=== PATIENT | female | born 1955 | race Caucasian/White ===

== ENCOUNTER 2016-11-22 16:45 | Observation (INO) | payer OTHER ==
[~2016-11-22] VITALS: Ht 175.3 cm; Wt 145.0 kg
[~2016-11-22 16:45] MED LIST: BUPROPION HCL75 MG PO; CHILDRENS CHEWA81 MG PO; CLARITIN10 MG PO; FLONASE 0.05% N16 GM; GABAPENTIN300 MG PO; HYDROCODON-ACE1 EAC2 PO; JANUMET 50-5001 EACH PO; LEVAQUIN500 MG PO; LEVOTHYROXINE25 MCG PO; OMEPRAZOLE40 MG PO; PRAVACHOL20 MG PO; SINGULAIR10 MG PO; VENTOLIN HFA8 GM INH; ZESTORETIC 20-1 EACH PO
[2016-11-22 17:17] LABS: BASO % 0.2 % (0.1-1.2); EOS # 0.2 10_X3_uL (0.0-0.4); EOS % 1.8 % (0.7-5.8); GRAN # 5.4 10_X3_uL (1.6-6.1); GRAN % 61.8 % (34.0-71.1); HEMATOCRIT 43.1 % (34-45); HEMOGLOBIN 14.1 g/dL (11.2-15.7); LYMPH # 2.5 10_X3_uL (1.2-3.7); LYMPH % 28.7 % (19.3-51.7); MEAN CORPUSCULAR HEMOGLOBIN 29.4 pg (27.0-33.0); MEAN CORPUSCULAR HGB CONC 32.7 g/dL (32.0-36.0); MEAN CORPUSCULAR VOLUME 89.8 fL (79-95); MEAN PLATELET VOLUME 10.3 fl (7.5-11.5); MONO # 0.7 10_X3_uL (0.2-0.9); MONO % 7.5 % (4.7-12.5); PLATELET COUNT 280 x10_3/uL (182-369); RED CELL DISTRIBUTION WIDTH 14.3 % (11.7-14.4); WHITE BLOOD COUNT 8.7 x10_3/uL (4.0-10.0)
[2016-11-22 17:41] LABS: ALBUMIN 3.9 gm/dL (3.4-5.0); BILIRUBIN,TOTAL 0.19 mg/dL (0.0-1.0); CALCIUM 9.3 mg/dL (8.7-10.7); CREATININE 1.2 mg/dL (0.6-1.3); POTASSIUM 4.5 mmol/L (3.5-5.1); TOTAL PROTEIN 6.9 gm/dL (6.4-8.2)
[2016-11-23 00:11] LABS: PARTIAL THROMBOPLASTIN TIME 22.9 SECONDS (21.3-29.3); PROTHROMBIN TIME (PATIENT) 10.5 SECONDS (9.9-11.1)
[2016-11-23 05:49] LABS: CKMB 1.6 ng/ml (0.0-5.0); TROP-I < 0.30 NG/ML (0.00-0.30)
[2016-11-23 12:01] LABS: CKMB 1.8 ng/ml (0.0-5.0)
[2016-11-23 12:05] LABS: TROP-I < 0.30 NG/ML (0.00-0.30)
[2016-11-23 18:24] LABS: URINE BILIRUBIN NEGATIVE (NEGATIVE); URINE BLOOD NEGATIVE (NEGATIVE); URINE GLUCOSE (UA) NORMAL (NORMAL); URINE KETONE NEGATIVE (NEGATIVE); URINE LEUKOCYTE ESTERASE TRACE (NEGATIVE); URINE NITRATE NEGATIVE (NEGATIVE); URINE PROTEIN NEGATIVE (NEGATIVE); UROBILINOGEN NORMAL mg/dL (<1.0)
[2016-11-23 18:42] LABS: URINE RBC RARE /[HPF] (0-2)
[2016-11-23 18:43] LABS: URINE BACTERIA TRACE (NONE SEEN); URINE MUCUS 1+; URINE SQUAMOUS EPITHELIAL CELL 0-10 /[HPF] (NONE SEEN); URINE WBC 0-5 /[HPF] (0-5)
[2016-11-24 07:42] LABS: HEMATOCRIT 43.9 % (34-45); HEMOGLOBIN 13.7 g/dL (11.2-15.7); MEAN CORPUSCULAR HEMOGLOBIN 28.5 pg (27.0-33.0); MEAN CORPUSCULAR HGB CONC 31.2 g/dL (32.0-36.0); MEAN CORPUSCULAR VOLUME 91.5 fL (79-95); MEAN PLATELET VOLUME 10.5 fl (7.5-11.5); RED BLOOD COUNT 4.8 x10_6/uL (3.9-5.2); RED CELL DISTRIBUTION WIDTH 14.5 % (11.7-14.4); WHITE BLOOD COUNT 5.9 x10_3/uL (4.0-10.0)
[2016-11-24 07:49] LABS: CALCIUM 8.7 mg/dL (8.7-10.7); CREATININE 1.2 mg/dL (0.6-1.3); POTASSIUM 4.4 mmol/L (3.5-5.1)
== END 2016-11-25 10:09 | disposition home or self-care (01) ==
LOC: ER 16:45 → MS 22:37
PROVIDERS: Emergency Medicine; ADMIT Family Medicine
DX: R07.89 Other chest pain (principal); N39.0 Urinary tract infection, site not specified; K52.9 Noninfective gastroenteritis and colitis, unspecified; K57.90 Diverticulosis of intestine, part unspecified, without perforation or abscess without bleeding; J44.9 Chronic obstructive pulmonary disease, unspecified; R09.02 Hypoxemia; J45.909 Unspecified asthma, uncomplicated; E78.5 Hyperlipidemia, unspecified; M51.26 Other intervertebral disc displacement, lumbar region; Z79.82 Long term (current) use of aspirin; Z79.4 Long term (current) use of insulin; Z79.891 Long term (current) use of opiate analgesic; Z79.899 Other long term (current) drug therapy; Z88.0 Allergy status to penicillin; Z82.49 Family history of ischemic heart disease and other diseases of the circulatory system; Z98.51 Tubal ligation status
CPT/HCPCS: 36415; 71010; 80048; 80053; 80061; 81001; 82550; 82553; 82962; 83880; 85025; 85610; 85730; 87086; 93005; 93017; 93041; 96372; 96374; 96375; 96376; 99070; 99285-25; A9502; G0378; J2785

== ENCOUNTER → 2016-12-19 | Day surgery (SDC) | payer OTHER ==
[~2016-12-19] VITALS: Ht 177.8 cm; Wt 144.7 kg
== END ==
LOC: OPS 08:27
PROC: 0DB48ZX Excision of Esophagogastric Junction, Via Natural or Artificial Opening Endoscopic, Diagnostic (ICD-10-PCS; principal; 2016-12-19)
PROC: 0DB78ZX Excision of Stomach, Pylorus, Via Natural or Artificial Opening Endoscopic, Diagnostic (ICD-10-PCS; 2016-12-19)
PROC: 0DB68ZX Excision of Stomach, Via Natural or Artificial Opening Endoscopic, Diagnostic (ICD-10-PCS; 2016-12-19)
PROC: 0DBK8ZX Excision of Ascending Colon, Via Natural or Artificial Opening Endoscopic, Diagnostic (ICD-10-PCS; 2016-12-19)
DX: K63.5 Polyp of colon (principal); K31.7 Polyp of stomach and duodenum; K57.90 Diverticulosis of intestine, part unspecified, without perforation or abscess without bleeding; K21.9 Gastro-esophageal reflux disease without esophagitis; R19.7 Diarrhea, unspecified; R10.9 Unspecified abdominal pain; M19.90 Unspecified osteoarthritis, unspecified site; K92.1 Melena; F32.9 Major depressive disorder, single episode, unspecified; M51.36 Other intervertebral disc degeneration, lumbar region; E11.9 Type 2 diabetes mellitus without complications; E78.5 Hyperlipidemia, unspecified; R13.10 Dysphagia, unspecified; R53.83 Other fatigue; I10 Essential (primary) hypertension; E03.9 Hypothyroidism, unspecified; Z79.899 Other long term (current) drug therapy; E66.01 Morbid (severe) obesity due to excess calories; Z68.42 Body mass index [BMI] 45.0-49.9, adult; R00.2 Palpitations; R91.1 Solitary pulmonary nodule; I49.3 Ventricular premature depolarization; G25.81 Restless legs syndrome; R12 Heartburn; J98.4 Other disorders of lung; Z82.49 Family history of ischemic heart disease and other diseases of the circulatory system; Z90.49 Acquired absence of other specified parts of digestive tract; Z98.890 Other specified postprocedural states; Z98.51 Tubal ligation status; Z88.0 Allergy status to penicillin; Z88.1 Allergy status to other antibiotic agents; Z79.1 Long term (current) use of non-steroidal anti-inflammatories (NSAID); Z79.84 Long term (current) use of oral hypoglycemic drugs
CPT/HCPCS: 82962; 94664; 99070; J2704; J3010